=== PATIENT | male | born 1960 | race African-American/Black ===

== ENCOUNTER 2017-05-13 16:29 | Emergency (ER) | payer SELFPAY, OTHER | END 2017-05-13 16:46 | disposition home or self-care (01) | LOC: ER 16:29 | DX: H10.33 Unspecified acute conjunctivitis, bilateral (principal); I10 Essential (primary) hypertension; E78.00 Pure hypercholesterolemia, unspecified; Z91.041 Radiographic dye allergy status; Z91.013 Allergy to seafood | CPT/HCPCS: 99283 ==